=== PATIENT | male | born 1990 | race Two or more races ===

== ENCOUNTER 2022-05-20 11:28 | Emergency (ER) | payer MEDICAID, OTHER ==
[~2022-05-20] VITALS: Ht 177.8 cm; Wt 75.0 kg
[~2022-05-20 11:28] MED LIST: DIVA500T2 PO; NO HOME MEDS
[2022-05-20 11:37] VITALS: BP 116/84
[2022-05-20] MEDS ORDERED: TETanus/Pertussis (Acell)/Diphther VAC/PF (Tdap-Adult) 0.5ml syringe IMVAC ONE (11:40)
[2022-05-20] MEDS ORDERED: bacitracin 15gm ointment TP ONE (11:40)
--- NOTE | 2022-05-20 11:55 | NUR ---
Patient was seen and assessed by provider.
== END 2022-05-20 11:59 ==
LOC: ER 11:28
DX: S21.151A Open bite of right front wall of thorax without penetration into thoracic cavity, initial encounter (principal); S61.451A Open bite of right hand, initial encounter; R45.1 Restlessness and agitation; I10 Essential (primary) hypertension; F41.9 Anxiety disorder, unspecified; F31.9 Bipolar disorder, unspecified; F12.90 Cannabis use, unspecified, uncomplicated; F15.90 Other stimulant use, unspecified, uncomplicated; Z72.89 Other problems related to lifestyle; Z88.6 Allergy status to analgesic agent; Z79.899 Other long term (current) drug therapy; W54.0XXA Bitten by dog, initial encounter; Y93.89 Activity, other specified; Y92.89 Other specified places as the place of occurrence of the external cause; Y99.8 Other external cause status
CPT/HCPCS: 90471; 90715; 99283